=== PATIENT | female | born 1990 | race Caucasian/White ===

== ENCOUNTER 2024-02-01 15:36 | Emergency (ER) | payer SELFPAY ==
[2024-02-01 16:35] VITALS: BP 108/80; PULSE 85; O2SAT 98
[2024-02-01 16:39] VITALS: BP 125/85; PULSE 86; RESP 20; TEMP 36.8; O2SAT 98; BMI 21.9
--- NOTE | 2024-02-01 16:39 | [facility].EDGENADL ---
Discharge Plan Disposition Patient Disposition: Home, Self-Care Chief Complaint: Wound/Laceration Prescriptions Prescriptions: No Action triamcinolone acetonide [Nasacort] 16.9 ML [place] 16.9 ml intranasal DAILY loratadine [Non-Drowsy Allergy] 10 MG Tablet 10 mg PO DAILY loratadine 10 MG tablet,disintegrating 10 mg PO DAILY Qty: 30 0RF fluticasone propionate 120 SPR/BOT bottle 2 spr NS DAILY Qty: 1 0RF Referrals Follow up/Referrals: Provider,Referral, MD [Primary Care Provider] - See instructions Activity Restrictions/Add. Instructions Additional Instructions/Restrictions: Call your family doctor to establish care for this visit to the emergency department and schedule follow-up within 48 hours to ensure improvement. If you have any worsening of your condition or any other concerning signs or symptoms, return to the emergency department or your primary care doctor for further evaluation. Have stitches removed in 14 days. Clinical Impressions Clinical Impression: Laceration of thumb Instructions Patient Instructions: DI for Laceration Repair Print Language Print Language: Hebrew Discharge ED Provider: Allen Jackson General Adult HPI General Chief complaint: Wound/Laceration Stated complaint: ao cut Left thumb Time Seen by Provider: 02/01/24 16:37 History of Present Illness HPI narrative: Please note that above description of symptoms, in this electronic medical record under categorization of recalled from ER triage doctor by RN are reflective of an initial nursing assessment, however, is not reflective of my full history and physical exam that was personally taken and clarified. Consequentially, this preceding description of symptoms, which may include the patient's categorized chief complaint in the EMR, do not reflect my personal clinical impression, and the ultimate description of history of present illness and patient stated complaints should be deferred to this section of the note. Unless stated otherwise or congruent with this section of the note, additional signs, symptoms, or incongruence should be interpreted as inaccurate with my clinical impression. Related Data Home Medications ?Medication ?Instructions ?Recorded ?Confirmed loratadine 10 mg tablet 10 mg PO DAILY allergies 12/01/17 12/01/17 (Non-Drowsy Allergy) triamcinolone acetonide 55 mcg 16.9 ml intranasal DAILY allergies 12/01/17 12/01/17 nasal spray aerosol (Nasacort) Previous Rx's ?Medication ?Instructions ?Recorded fluticasone propionate 50 2 spr NS DAILY ##1 12/01/17 mcg/actuation nasal spray,suspension loratadine 10 mg disintegrating 10 mg PO DAILY ##30 12/01/17 tablet Allergies Allergy/AdvReac Type Severity Reaction Status Date / Time No Known Allergies Allergy Verified 12/01/17 17:57 [facility] Disclaimer: The information contained in this section may have been updated after the patient was seen, as this information can be updated by other users. Social History Smoking Status: Current every day smoker tobacco type: cigarettes alcohol intake: never current occupational status: employed Travel in the last 8 weeks: None ROS Obtained: Yes All systems reviewed & no additional complaints except as documented Physical Exam General General appearance: alert Head Head exam: atraumatic and normocephalic Eye Eye exam: Present normal appearance, PERRL and EOMI Neck Neck exam: Present normal inspection, full ROM and trachea midline Respiratory Respiratory exam: Absent respiratory distress, wheezes, stridor, accessory muscle use or prolonged expiratory phase Cardiovascular Cardiovascular exam: Present other (Pulses equal symmetric in upper and lower extremities) Abdominal Exam Abdominal exam: Present soft; Absent distention, tenderness or pulsatile mass Extremities Exam Extremities exam: Present other (Per MDM); Absent edema Neurological Exam Neurological exam: Present
--- NOTE | 2024-02-01 16:42 | XR_ITS ---
PROCEDURE INFORMATION: Exam: XR Left Hand Exam date and time: 02/01/2024 4:44 PM Age: 33 years old Clinical indication: Injury or trauma; Laceration; Finger; Left; Thumb; Additional info: Rule out thumb fb TECHNIQUE: Imaging protocol: Radiologic exam of the left hand. Views: 3 or more views. COMPARISON: No relevant prior studies available. FINDINGS: Bones/joints: No acute osseous injury. Soft tissues: There is some soft tissue swelling. No radiopaque foreign body is seen. IMPRESSION: No radiopaque foreign body or acute osseous abnormality.
[2024-02-01 17:34] VITALS: BP 104/74; PULSE 69; RESP 16; O2SAT 98
[2024-02-01 18:00] VITALS: BP 108/71; PULSE 60; RESP 18; O2SAT 97
[2024-02-01 18:30] VITALS: BP 122/80; PULSE 71; O2SAT 100
[2024-02-01 19:12] VITALS: BP 123/75; PULSE 68; RESP 18; TEMP 36.8; O2SAT 99
== END 2024-02-01 19:17 | disposition home or self-care (01) ==
LOC: UTC 16:25 → ER 16:29
PROVIDERS: Emergency Provider Emergency Medicine
DX: S61.012A Laceration without foreign body of left thumb without damage to nail, initial encounter (principal); W26.0XXA Contact with knife, initial encounter; Z23 Encounter for immunization
CPT/HCPCS: 12002; 73130; 90471; 90715; 99283